=== PATIENT | male | born 1980 | race African-American/Black ===

== ENCOUNTER → 2021-07-13 | Outpatient (CLI) | payer OTHER ==
--- NOTE | 2021-07-13 14:54 | KCIC ---
Exam Date: 07/13/2021 10:40 AM MRI RIGHT UPPER EXTREMITY JOINT WITHOUT CONTRAST Indication: Reason: RIGHT WRIST PAIN / Spl. Instructions: / History: Chronic pain on both medial and lateral sides of wrist for yrs.. TECHNIQUE: Multiplanar MR images of the wrist were obtained without intravenous contrast. FINDINGS: The triangular fibrocartilage complex is within normal limits. Scapholunate and lunotriquetral ligam ents are within normal limits, though lack of intra-articular contrast limits evaluation of these str uctures. Flexor tendons and carpal tunnel are within normal limits. Extensor tendons are within normal limits . Few small scattered cystic changes identified in the osseous structures, likely degenerative. Increa sed T2 signal involving the dorsal and lateral aspect of the distal ulna may be secondary to suboptim al fat saturation at the periphery of the [id number], or could represent nonspecific marrow edema, such as from bone contusion. No fracture line is identified. Visualized osseous structures otherwi se demonstrate normal signal on all sequences. IMPRESSION: Mild degenerative changes noted. Increased T2 signal involving the dorsal and lateral aspect of the distal ulna may be secondary to arzate boptimal fat saturation at the periphery of the [id number], or could represent nonspecific marrow edema, such as from bone contusion. No fracture line is identified. Intact triangular fibrocartilage complex. Electronically signed by: Lucho Watson MD (07/13/2021 2:51 PM) [id number]
== END ==
LOC: KCIC MRI 10:32
PROVIDERS: ATTEND Nurse Practitioner Family
DX: M19.031 Primary osteoarthritis, right wrist (principal)
CPT/HCPCS: 73221